=== PATIENT | male | born 1985 | race Caucasian/White ===

== ENCOUNTER 2025-06-01 14:27 | Inpatient (IN) ==
--- NOTE | 2025-06-01 14:53 | Emergency Department Note ---
Impression & Plan Pulmonary embolism, DVT (deep venous thrombosis) ED Provider Note NAME: PARRISH ARNOLD AGE: 39 SEX: F : 1985 ARRIVES VIA: Walk-In INFORMANT: Patient ED PROVIDER(S): Steve Villela DO CHIEF COMPLAINT: Left leg pain and swelling and chest pain HPI: Patient is a 39-year-old male who presents ER for left calf pain in combination with swelling which has been present over the past week. Patient was seen evaluated and referred in for the swelling. He also notes that he had some right sided chest pain which started 2 days ago. Pain has resolved and was only there for short period of time. Nonexertional. No shortness of breath. No dysuria, urgency or frequency. Denies any recent trips or travel, coughing up blood history of blood clots or clotting disorders. ADDITIONAL HISTORY OBTAINED: Per HPI Chronic Medical/Social Conditions Affecting Care: Per HPI PAST MEDICAL HISTORY:See Below PAST SURGICAL HISTORY:See Below FAMILY HISTORY:See Below SOCIAL HISTORY:See Below HOME MEDICATIONS:See Below ALLERGIES:See Below VITALS:See Below PHYSICAL EXAMINATION: GENERAL: Sitting up in bed, alert, well appearing, well nourished, no distress, non-toxic EYE EXAM: normal conjunctiva. PERRL and EOM's grossly intact. OROPHARYNX: no exudate, no erythema, lips, buccal mucosa, and tongue normal and mucous membranes are moist NECK: supple, no nuchal rigidity, no adenopathy, non-tender LUNGS: Clear to auscultation. Normal chest wall mechanics HEART: no murmurs, S1 normal and S2 normal ABDOMEN: abdomen soft, non-tender, normo-active bowel sounds, no masses, no rebound or guarding. UPPER EXTREMITIES: upper extremities are grossly normal. LOWER EXTREMITIES: No pitting edema. Left calf larger than right. NEURO EXAM: Normal sensorium, cranial nerves II-XII grossly intact, normal speech, no gross weakness of arms, no gross weakness of legs. MEDICAL DECISION MAKING: Patient is a 39-year-old male who presents ER for the above-stated complaint. IV was established and blood work was obtained. Labs show no significant leukocytosis or anemia. INR unremarkable. D-dimer was elevated at 9000. BMP along with LFTs bilirubin lipase and troponin was negative. CT angio the chest shows PEs. Chest x-ray was unremarkable. Duplex confirms lower extremity DVTs. He denies any previous brain bleeds, coughing up blood, vomiting blood or urinating blood. Patient was placed on a heparin drip and bolus. Discussed case with the hospitalist for further evaluation management treatment. Consults/Care Managements Discussions: Per [facility] Triage Nursing notes reviewed. Limited review of prior medical records performed Vital Signs: reviewed and remarkable for HTN Differential diagnosis: DVT, musculoskeletal, infection, joint effusion, trauma, lymphedema, idiopathic, CHF, as well as other pathologies. ER treatment provided: See below Diagnostics interpreted by me include EKG and cardiac monitoring as listed below: -Cardiac Monitoring: An order was placed for continuous cardiac monitoring. The monitor shows a rate of 95 with sinus rhythm. -ECG: Sinus rhythm rate of 102 Normal axis No PVCs QTc 448 -Laboratory studies:Interpreted by me as stated above in MDM and shown below. Imaging studies: Xrays: As interpreted by me:none CTs show: CT angio the chest per my pleurae interpretation shows PEs CT angio the chest per radiology confirms PEs Duplex of the left lower extremity suggest DVTs Procedures:none Critical Care: I have personally spent 55 minutes of critical care time in the direct management of this patient. This includes bedside care, interpretation of diagnostic studies, and testing, discussion with consultants, patient, and family members, and other required patient management activities. This 55 minutes is in excess of all separately billable procedures. Past Med/Surg History Problem List (Updated 06/01/25 @ 17:34 by Steve Villela DO) DVT (deep venous thrombosis) (Acute) Pulmonary embolism (Acute) Social History Smoking Status: Never smoker Preferred Language: Azeri Feels Safe at Home: Yes Allergies Allergies Allergy/AdvReac Type Severity Reaction Status Date / Time No Known Allergies Allergy Unverified 06/01/25 17:29 Home Meds Home Medications Medication Instructions Recorded Confirmed aspirin 325 mg tablet 325 mg PO Q4H PRN Pain 06/01/25 06/01/25 ibuprofen 200 mg tablet 400 - 600 mg PO Q6H PRN Pain 06/01/25 06/01/25 Results & Data (ED) Vital Signs Vital Signs - 24 hr 06/01/25 14:30 06/01/25 15:05 06/01/25 15:08 Temperature 37.3 C Temperature Source Temporal Artery Scan Pulse Rate 111 H 102 H Respiratory Rate 20 21 Respiratory Effort / Characteristics Non-Labored Respiratory Depth Normal Blood Pressure 167/94 H 166/100 H Blood Pressure Mean 118 116 Pulse Oximetry 98 98 94 Oxygen Delivery Method Room Air Room Air Sepsis Recent Fever Within 48 Hours No Sepsis New/Unexplained Change in Mental Status No Sepsis Action Taken by Nursing No Action Required 06/01/25 15:17 06/01/25 15:30 06/01/25 15:51 Temperature Temperature Source Pulse Rate 102 H 98 H Respiratory Rate 19 Respiratory Effort / Characteristics Respiratory Depth Blood Pressure 162/111 H Blood Pressure Mean 146 Pulse Oximetry 95 95 Oxygen Delivery Method Sepsis Recent Fever Within 48 Hours Sepsis New/Unexplained Change in Mental Status Sepsis Action Taken by Nursing 06/01/25 16:04 Temperature Temperature Source Pulse Rate 97 H Respiratory Rate 12 Respiratory Effort / Characteristics Respiratory Depth Blood Pressure 151/86 H Blood Pressure Mean 100 Pulse Oximetry 92 Oxygen Delivery Method Sepsis Recent Fever Within 48 Hours Sepsis New/Unexplained Change in Mental Status Sepsis Action Taken by Nursing Laboratory Data 06/01/25 15:09 06/01/25 15:09 Lab Results 06/01/25 Range/Units 15:09 WBC 7.67 (4.8-10.8) K/ul RBC 5.05 (4.20-5.40) M/uL Hgb 15.0 (12.0-16.0) g/dL Hct 44.6 (37.0-47.0) % MCV 88.3 (80.0-100.0) fL MCH 29.7 (25.0-34.0) pg MCHC 33.6 (32.0-36.0) g/dL RDW Std Deviation 38.2 (36.4-46.3) fL RDW Coeff of Rocío 11.9 (11.5-14.5) % Plt Count 208 (130-400) K/uL MPV 9.9 (9.4-12.4) fL Immature Gran % (Auto) 0.5 % Neut % (Auto) 73.3 % Lymph % (Auto) 14.1 % [place] % (Auto) 9.6 % Eos % (Auto) 1.7 % Baso % (Auto) 0.8 % Neut # (Auto) 5.62 (1.40-6.50) K/uL Lymph # (Auto) 1.08 L (1.20-3.40) K/uL [place] # (Auto) 0.74 H (0.11-0.59) K/uL Eos # (Auto) 0.13 (0.00-0.50) K/uL Baso # (Auto) 0.06 (0.00-0.20) K/uL Immature Gran # (Auto) 0.04 (0.01-0.20) K/uL PT 10.4 (9.0-12.0) Seconds INR 1.0 (0.9-1.1) APTT 24 (21-31) Seconds PTT Ratio 0.9 D-Dimer 9500 H* (0-500) ug/L FEU Sodium 142 (136-145) mmol/L Potassium 4.0 (3.5-5.1) mmol/L Chloride 107 (98-107) mmol/L Carbon Dioxide 28 (21-32) mmol/L Anion Gap 7 (3-11) BUN 13 (6-23) mg/dl Creatinine 1.01 (0.6-1.2) mg/dl Est Cr Clr Drug Dosing 102.2 ml/min eGFR 73.07 BUN/Creatinine Ratio 12.9 (10-20) Glucose 111 H (70-99(Fasting)) mg/dl Calcium 9.2 (8.6-10.3) mg/dl Total Bilirubin 0.7 (0.2-1.0) mg/dl AST 28 (13-39) U/L ALT 42 (7-52) U/L Alkaline Phosphatase 79 (34-104) U/L Troponin I High Sens < 2.3 (0-14) pg/ml Total Protein 7.1 (6.0-8.3) gm/dl Albumin 4.1 (3.4-5.0) gm/dl Globulin 3.0 (2.5-4.0) gm/dl Albumin/Globulin Ratio 1.4 (0.9-2) Lipase 22 (11-82) U/L Administered Medications Heparin Sodium/Dextrose (Heparin 98195 Unit/500 Ml D5w) 25,000 units in 500 mls @ 32 mls/hr IV .[id number] [facility]; Protocol Stop: 07/01/25 17:14 Last Admin: 06/01/25 17:18 Dose: 1,600 units/hr, 32 mls/hr Documented By: earl Co-signed By: MINERVA Discontinued Medications Heparin Sodium (Porcine) (Heparin Sod (Porcine) 1000 Unit/Ml) 1 units IV NOW ONE Stop: 06/01/25 17:08 Last Admin: 06/01/25 17:17 Dose: 7,000 units Documented By: earl Co-signed By: MINERVA Sodium Chloride (Nss) 1,000 mls @ 999 mls/hr IV .Q1H1M ONE Stop: 06/01/25 15:48 Last Infusion: 06/01/25 16:11 Dose: Infused Documented By: earl Admin: 06/01/25 15:10 Dose: 999 mls/hr Documented By: earl Ioversol (Optiray 320 125ml) 119 ml IV ONCE ONE Stop: 06/01/25 16:51 Last Admin: 06/01/25 16:51 Dose: 119 ml Documented By: EDK Imaging Data Radiologist's Impression: Chest X-Ray 06/01/25 14:48 Exam: AP Portable Chest Exam reason: Nonspecific chest pain Comparison: No prior examinations available for comparison Technique: A single AP portable view of the chest was obtained Findings: The lungs are well-expanded. No focal areas of consolidation are identified. The cardiac and mediastinal silhouettes are within normal limits. There is no pneumothorax and no acute bony abnormalities are seen. Impression: No acute cardiopulmonary abnormalities Electronically signed by Nitin Viveros 06-01-2025 3:33 PM Chest CTA 06/01/25 16:23 EXAMINATION: CT angio chest PE protocol CLINICAL HISTORY: Patient concern for PE, left calf pain not improving, chest pain 3 days PRIORS: Chest radiograph today TECHNIQUE: Contiguous axial images were obtained through the chest with the use of intravenous contrast. Sagittal and coronal reformations are supplied. FINDINGS: The pulmonary arteries are well opacified. Right central, segmental and subsegmental pulmonary embolism present in the right lower lobe. Pulmonary embolism also present in the central segmental and subsegmental right upper lobe branches. No left pulmonary embolism is identified. No flattening of the interventricular septum at this time. Heart size within normal limits. No pleural or pericardial effusion. Trachea and mainstem bronchi are patent. No adenopathy in the chest. Thyroid is normal in size. No pneumonia, airspace consolidation, pulmonary infarction or pleural effusion. Limited visualization of the upper abdomen is unremarkable. No acute osseous abnormality. IMPRESSION: Right upper and lower lobe central, segmental and subsegmental pulmonary embolism with moderate thrombus burden and no CT features of heart strain at this time. The critical result protocol was activated at 5:23 PM EST on 06/01/2025 ACT 112: Positive. There are findings on this examination that require communication between the performing entity and the patient following Patient Test Result Information Act ([place] ACT 112) guidelines. Electronically signed by Sofie Kelley 06-01-2025 5:23 PM Discharge Plan Visit Data Chief Complaint: Leg Injury/Pain Stated Complaint: POSSIBLE DVT W/ PUMOMANARY EMUBLISM IN LEG ED Provider: Steve Villela Discharge Problem: Pulmonary embolism, DVT (deep venous thrombosis) Condition: Serious Forms Stand Alone Forms: B[employer] Prescriptions Prescriptions: No Action aspirin 325 mg Tablet 325 mg PO Q4H PRN (Reason: Pain) ibuprofen 200 mg Tablet 400 - 600 mg PO Q6H PRN (Reason: Pain) Referrals Referrals: PCP,NO [Physician] - Discharge Problem: Pulmonary embolism Qualifiers: Pulmonary embolism type: unspecified Chronicity: acute Acute cor pulmonale presence: unspecified Qualified Code(s): I26.99 - Other pulmonary embolism without acute cor pulmonale DVT (deep venous thrombosis) Qualifiers: DVT location: lower extremity Chronicity: acute Laterality: left
[2025-06-01] MEDS: SODIUM CHLORIDE 0.9% 1,000 ML IV ONE ×2 (15:10→18:03)
--- NOTE | 2025-06-01 15:34 | XRay Report ---
Exam: AP Portable Chest Exam reason: Nonspecific chest pain Comparison: No prior examinations available for comparison Technique: A single AP portable view of the chest was obtained Findings: The lungs are well-expanded. No focal areas of consolidation are identified. The cardiac and mediastinal silhouettes are within normal limits. There is no pneumothorax and no acute bony abnormalities are seen. Impression: No acute cardiopulmonary abnormalities Electronically signed by Nitin Viveros 06-01-2025 3:33 PM
[2025-06-01 15:44] LABS: Immature Granulocytes # (auto) 0.04 K/uL (0.01-0.20); Immature Granulocytes % (auto) 0.5 %; Mean Corpuscular Hemoglobin 29.7 pg (25.0-34.0); Mean Corpuscular Volume 88.3 fL (80.0-100.0); Platelet Count 208 K/uL (130-400); RDW Standard Deviation 38.2 fL (36.4-46.3); White Blood Count 7.67 K/ul (4.8-10.8)
[2025-06-01 16:01] LABS: Alanine Aminotransferase 42 U/L (7-52); Albumin Globulin Ratio 1.4 (0.9-2); Albumin Level 4.1 gm/dl (3.4-5.0); Alkaline Phosphatase 79 U/L (34-104); Anion Gap 7 (3-11); Bilirubin,Total 0.7 mg/dl (0.2-1.0); Blood Urea Nitrogen 13 mg/dl (6-23); Calcium 9.2 mg/dl (8.6-10.3); Carbon Dioxide 28 mmol/L (21-32); Chloride 107 mmol/L (98-107); Globulin 3.0 gm/dl (2.5-4.0); Glucose 111 mg/dl (70-99(Fasting)); Lipase 22 U/L (11-82); Potassium 4.0 mmol/L (3.5-5.1); Sodium 142 mmol/L (136-145); Total Protein 7.1 gm/dl (6.0-8.3)
[2025-06-01] MEDS: OPTIRAY 320 125ml IV ONE (16:51)
[2025-06-01 17:12] LABS: INR 1.0 (0.9-1.1); Partial Thromboplastin Time 24 Seconds (21-31); Prothrombin Time 10.4 Seconds (9.0-12.0)
[2025-06-01] MEDS: HEPARIN SOD (PORCINE) 1000 UNIT/ML IV ONE (17:17)
[2025-06-01] MEDS: HEPARIN 25000 UNIT/500 ML D5W 25,000 UNITS/500 ML BAG IV SCH (17:18)
--- NOTE | 2025-06-01 17:24 | CT Scan Report ---
EXAMINATION: CT angio chest PE protocol CLINICAL HISTORY: Patient concern for PE, left calf pain not improving, chest pain 3 days PRIORS: Chest radiograph today TECHNIQUE: Contiguous axial images were obtained through the chest with the use of intravenous contrast. Sagittal and coronal reformations are supplied. FINDINGS: The pulmonary arteries are well opacified. Right central, segmental and subsegmental pulmonary embolism present in the right lower lobe. Pulmonary embolism also present in the central segmental and subsegmental right upper lobe branches. No left pulmonary embolism is identified. No flattening of the interventricular septum at this time. Heart size within normal limits. No pleural or pericardial effusion. Trachea and mainstem bronchi are patent. No adenopathy in the chest. Thyroid is normal in size. No pneumonia, airspace consolidation, pulmonary infarction or pleural effusion. Limited visualization of the upper abdomen is unremarkable. No acute osseous abnormality. IMPRESSION: Right upper and lower lobe central, segmental and subsegmental pulmonary embolism with moderate thrombus burden and no CT features of heart strain at this time. The critical result protocol was activated at 5:23 PM EST on 06/01/2025 ACT 112: Positive. There are findings on this examination that require communication between the performing entity and the patient following Patient Test Result Information Act ([place] ACT 112) guidelines. Electronically signed by Sofie Kelley 06-01-2025 5:23 PM
--- NOTE | 2025-06-01 19:04 | History & Physical Report ---
Date of Service June 01, 2025 Assessment & Plan (1) Pulmonary embolism: Plan: 39-year-old male with past med history significant for anxiety comes because of left lower extremity swelling and pain and found to have acute DVT and PE. Patient states since about a week he is having swelling and pain in the left lower extremity. Has been not getting better and came to the ER today. Few days back had an episode of right-sided chest pain but that got resolved. He had fever for couple of days few days ago but that got resolved. Currently no chest pain or shortness of breath. No headache. No dizziness. Vision is okay. No runny nose or sore throat. No cough. Appetite is okay. No recent weight loss. No nausea. No abdominal pain. Normal bowel and bladder movements. Denies any blood in the stools. Currently resting comfortably and hemodynami blue stable. No recent long distance travel. No recent surgeries. Says father has a history of blood clot. Acute pulmonary embolism Acute DVT left lower extremity Started on IV heparin Troponin negative CTA chest shows right upper and lower lobe segmental and subsegmental PE with moderate thrombus burden and no CT features of heart strain Will follow echo Follow-up with PCP for hypercoagulable Workup Close monitoring med/telemetry DVT prophylaxis IV heparin Disposition Med/telemetry Full code. History of Present Illness Chief Complaint: Acute PE and DVT Primary Care Provider: Cresencio Espinosa MD 39-year-old male with past med history significant for anxiety comes because of left lower extremity swelling and pain and found to have acute DVT and PE. Patient states since about a week he is having swelling and pain in the left lower extremity. Has been not getting better and came to the ER today. Few days back had an episode of right-sided chest pain but that got resolved. He had fever for couple of days few days ago but that got resolved. Currently no chest pain or shortness of breath. No headache. No dizziness. Vision is okay. No runny nose or sore throat. No cough. Appetite is okay. No recent weight loss. No nausea. No abdominal pain. Normal bowel and bladder movements. Denies any blood in the stools. Currently resting comfortably and hemodynamically stable. No recent long distance travel. No recent surgeries. Says father has a history of blood clot. Past medical history. As mentioned above. Past surgical history. No surgical history on file. Social history. No smoking. No alcohol use. No drug use. Family history. Maternal grandmother has diabetes. Paternal grandmother has diabetes. Uncle has diabetes. Allergies Allergy/AdvReac Type Severity Reaction Status Date / Time No Known Allergies Allergy Unverified 06/01/25 17:29 Home Medications Medication Instructions Recorded Confirmed Type aspirin 325 mg tablet 325 mg PO Q4H PRN Pain 06/01/25 06/01/25 History ibuprofen 200 mg tablet 400 - 600 mg PO Q6H PRN Pain 06/01/25 06/01/25 History Past Med/Surg History Problem List (Updated 06/01/25 @ 17:34 by Steve Villela DO) DVT (deep venous thrombosis) (Acute) Pulmonary embolism (Acute) Social History Smoking Status: Never smoker Preferred Language: German Feels Safe at Home: Yes Review of Systems Review of Systems: All systems reviewed & are unremarkable except as noted in HPI & below Physical Exam Physical Exam: General- Not in distress Head- atraumatic Eyes- PERRL. ENT- oropharynx clear Neck- supple, no JVD. Lungs- clear to auscultation no wheezing or crackles Heart- regular rhythm; no murmur, no gallop. Abdomen- normal bowel sounds, soft, nontender, no distension. Extremities- Left lower extremity swollen and warm to palpation Neuro- alert, oriented PERRL, no facial palsy; no dysarthria; moves extremities Results & Data Results & Data Vital Signs (Past 12 Hours) Vital Signs Temp Pulse Resp BP Pulse Ox O2 Del Method 06/01/25 16:04 97 H 12 151/86 H 92 06/01/25 15:51 95 06/01/25 15:30 98 H 19 162/111 H 95 06/01/25 15:17 102 H 06/01/25 15:08 102 H 21 166/100 H 94 06/01/25 15:05 98 Room Air 06/01/25 14:30 37.3 C 111 H 20 167/94 H 98 Room Air Diagnostic Findings Laboratory Results WBC 7.67 K/ul (4.8-10.8) 06/01/25 15:09 RBC 5.05 M/uL (4.20-5.40) 06/01/25 15:09 Hgb 15.0 g/dL (12.0-16.0) 06/01/25 15:09 Hct 44.6 % (37.0-47.0) 06/01/25 15:09 MCV 88.3 fL (80.0-100.0) 06/01/25 15:09 MCH 29.7 pg (25.0-34.0) 06/01/25 15:09 MCHC 33.6 g/dL (32.0-36.0) 06/01/25 15:09 RDW Std Deviation 38.2 fL (36.4-46.3) 06/01/25 15:09 RDW Coeff of [place]ío 11.9 % (11.5-14.5) 06/01/25 15:09 Plt Count 208 K/uL (130-400) 06/01/25 15:09 MPV 9.9 fL (9.4-12.4) 06/01/25 15:09 Immature Gran % (Auto) 0.5 % 06/01/25 15:09 Neut % (Auto) 73.3 % 06/01/25 15:09 Lymph % (Auto) 14.1 % 06/01/25 15:09 [place] % (Auto) 9.6 % 06/01/25 15:09 Eos % (Auto) 1.7 % 06/01/25 15:09 Baso % (Auto) 0.8 % 06/01/25 15:09 Neut # (Auto) 5.62 K/uL (1.40-6.50) 06/01/25 15:09 Lymph # (Auto) 1.08 K/uL (1.20-3.40) L 06/01/25 15:09 [place] # (Auto) 0.74 K/uL (0.11-0.59) H 06/01/25 15:09 Eos # (Auto) 0.13 K/uL (0.00-0.50) 06/01/25 15:09 Baso # (Auto) 0.06 K/uL (0.00-0.20) 06/01/25 15:09 Immature Gran # (Auto) 0.04 K/uL (0.01-0.20) 06/01/25 15:09 PT 10.4 Seconds (9.0-12.0) 06/01/25 15:09 INR 1.0 (0.9-1.1) 06/01/25 15:09 APTT 24 Seconds (21-31) 06/01/25 15:09 PTT Ratio 0.9 06/01/25 15:09 D-Dimer 9500 ug/L FEU (0-500) H* 06/01/25 15:09 Sodium 142 mmol/L (136-145) 06/01/25 15:09 Potassium 4.0 mmol/L (3.5-5.1) 06/01/25 15:09 Chloride 107 mmol/L (98-107) 06/01/25 15:09 Carbon Dioxide 28 mmol/L (21-32) 06/01/25 15:09 Anion Gap 7 (3-11) 06/01/25 15:09 BUN 13 mg/dl (6-23) 06/01/25 15:09 Creatinine 1.01 mg/dl (0.6-1.2) 06/01/25 15:09 Est Cr Clr Drug Dosing 102.2 ml/min 06/01/25 15:09 eGFR 73.07 06/01/25 15:09 BUN/Creatinine Ratio 12.9 (10-20) 06/01/25 15:09 Glucose 111 mg/dl (70-99(Fasting)) H 06/01/25 15:09 Calcium 9.2 mg/dl (8.6-10.3) 06/01/25 15:09 Total Bilirubin 0.7 mg/dl (0.2-1.0) 06/01/25 15:09 AST 28 U/L (13-39) 06/01/25 15:09 ALT 42 U/L (7-52) 06/01/25 15:09 Alkaline Phosphatase 79 U/L (34-104) 06/01/25 15:09 Troponin I High Sens < 2.3 pg/ml (0-14) 06/01/25 15:09 Total Protein 7.1 gm/dl (6.0-8.3) 06/01/25 15:09 Albumin 4.1 gm/dl (3.4-5.0) 06/01/25 15:09 Globulin 3.0 gm/dl (2.5-4.0) 06/01/25 15:09 Albumin/Globulin Ratio 1.4 (0.9-2) 06/01/25 15:09 Lipase 22 U/L (11-82) 06/01/25 15:09 Impressions Chest X-Ray 06/01/25 14:48 Exam: AP Portable Chest Exam reason: Nonspecific chest pain Comparison: No prior examinations available for comparison Technique: A single AP portable view of the chest was obtained Findings: The lungs are well-expanded. No focal areas of consolidation are identified. The cardiac and mediastinal silhouettes are within normal limits. There is no pneumothorax and no acute bony abnormalities are seen. Impression: No acute cardiopulmonary abnormalities Electronically signed by Nitin Viveros 06-01-2025 3:33 PM Chest CTA 06/01/25 16:23 EXAMINATION: CT angio chest PE protocol CLINICAL HISTORY: Patient concern for PE, left calf pain not improving, chest pain 3 days PRIORS: Chest radiograph today TECHNIQUE: Contiguous axial images were obtained through the chest with the use of intravenous contrast. Sagittal and coronal reformations are supplied. FINDINGS: The pulmonary arteries are well opacified. Right central, segmental and subsegmental pulmonary embolism present in the right lower lobe. Pulmonary embolism also present in the central segmental and subsegmental right upper lobe branches. No left pulmonary embolism is identified. No flattening of the interventricular septum at this time. Heart size within normal limits. No pleural or pericardial effusion. Trachea and mainstem bronchi are patent. No adenopathy in the chest. Thyroid is normal in size. No pneumonia, airspace consolidation, pulmonary infarction or pleural effusion. Limited visualization of the upper abdomen is unremarkable. No acute osseous abnormality. IMPRESSION: Right upper and lower lobe central, segmental and subsegmental pulmonary embolism with moderate thrombus burden and no CT features of heart strain at this time. The critical result protocol was activated at 5:23 PM EST on 06/01/2025 ACT 112: Positive. There are findings on this examination that require communication between the performing entity and the patient following Patient Test Result Information Act ([place] ACT 112) guidelines. Electronically signed by Sofie Kelley 06-01-2025 5:23 PM ECG Additional Comments: ECG. Sinus tachycardia rate of 102. No acute ST changes seen. Code Status & VTE Plan VTE Prophylaxis Plan VTE Prophylaxis will be ordered: Yes (1) Pulmonary embolism Acute cor pulmonale presence: unspecified Chronicity: acute Pulmonary embolism type: unspecified Qualified Code(s): I26.99 - Other pulmonary embolism without acute cor pulmonale
[2025-06-01] MEDS ORDERED: POLYETHYLENE (MIRALAX) 17 GM PACK PO PRN (22:47)
[2025-06-01] MEDS ORDERED: ACETAMINOPHEN 325 MG TAB PO PRN (22:47)
[2025-06-01] MEDS ORDERED: NITROGLYCERIN SL 0.4 MG/TAB TAB SL PRN (22:47)
[2025-06-01] MEDS: Heparin IV Adult Wt-Based Standard w/ INITIAL Bolus Protocol IV STA (23:00)
[2025-06-01] MEDS: SODIUM CHLORIDE 0.9% 1,000 ML IV SCH (23:10)
[2025-06-02 00:05] LABS: ANTI-Xa, UFH(UnfractionatedHep 0.52 IU/ml (0.3-0.7)
--- NOTE | 2025-06-02 00:47 | Ultrasound Report ---
Exam(s): US VENOUS LEFT LOWER EXTREMITY EXAM: US Duplex Left Lower Extremity Veins CLINICAL HISTORY: Reason for exam: swelling. OTHER: Other Notes: LLE pain in calf for about a week per pt LLE- occlusive thrombus seen left sfv distal to distal calf. (Left ptv, pierre, and atv). Pt has a duplicated system, one of two sfv appears patent and compressible. TECHNIQUE: Real-time duplex ultrasound scan of the left lower extremity veins integrating B-mode two-dimensional vascular structure, Doppler spectral analysis, color flow Doppler imaging and compression. COMPARISON: No relevant prior studies available. FINDINGS: Deep veins: Occlusive thrombus extending from the distal left posterior tibial peroneal and anterior tibial veins to one of the paired distal left femoral veins. The other. Femoral vein is fully compressible normal color flow and augmentation. Superficial veins: Unremarkable. No thrombus in the visualized great saphenous vein. Soft tissues: No acute findings. No popliteal cyst. IMPRESSION: Left lower extremity DVT extending from the tibial veins in the calf to one of the paired distal left femoral veins. Electronically signed by: Steve Coelho MD 06/02/25 00:46 AM
--- NOTE | 2025-06-02 05:58 | Electrocardiogram Report ---
Test Reason : Blood Pressure : */* mmHG Vent. Rate : 102 BPM Atrial Rate : 102 BPM P-R Int : 182 ms QRS Dur : 86 ms QT Int : 344 ms P-R-T Axes : 46 69 65 degrees QTcB Int : 448 ms Sinus tachycardia Otherwise normal ECG No previous ECGs available Confirmed by Dino Bowie ([id number]) on 06/02/2025 5:57:59 AM Referred By: REFERRED SELF Confirmed By: Dino Bowie
[2025-06-02 06:35] LABS: Hematocrit (blood only) 40.1 % (42.0-52.0); Hemoglobin 13.3 g/dL (14.0-18.0); Immature Granulocytes # (auto) 0.03 K/uL (0.01-0.20); Immature Granulocytes % (auto) 0.5 %; Mean Corpuscular Hemoglobin 29.2 pg (25.0-34.0); Mean Corpuscular Volume 88.1 fL (80.0-100.0); Platelet Count 173 K/uL (130-400); RDW Standard Deviation 38.5 fL (36.4-46.3); Red Blood Count 4.55 M/uL (4.70-6.10); White Blood Count 6.10 K/ul (4.8-10.8)
[2025-06-02 07:06] LABS: Anion Gap 6 (3-11); Blood Urea Nitrogen 8 mg/dl (6-23); Calcium 8.2 mg/dl (8.6-10.3); Carbon Dioxide 27 mmol/L (21-32); Chloride 108 mmol/L (98-107); Creatinine Clr Calc Pharmacy 144.0 ml/min; Glucose 108 mg/dl (70-99(Fasting)); Magnesium 2.0 mg/dl (1.7-2.4); Potassium 4.1 mmol/L (3.5-5.1); Sodium 141 mmol/L (136-145)
[2025-06-02] MEDS: APIXABAN 5 MG TABLET PO SCH (08:40)
--- NOTE | 2025-06-02 08:51 | XCELERA ---
[id number]
--- NOTE | 2025-06-02 11:17 | Discharge Summary ---
Discharge Summary Date of Service June 02, 2025 Principal Dx & Hospital Course #1 = Principal Diagnosis (1) DVT (deep venous thrombosis): (2) Pulmonary embolism: Patient is a 39-year-old male with PMHx significant for anxiety who presented to the ED on 06/01/25 with c/o LLE swelling, R-sided chest achiness and some intermittent SOB with exertion. Was found to have a left lower extremity DVT extending from the tibial veins in the calf to one of the paired distal left femoral veins on US doppler imaging. Was also found to have right upper and lower lobe central, segmental and subsegmental pulmonary emboli with moderate thrombus burden on chest CTA, no CT features of heart strain. Was started on IV heparin in ED and then transitioned to Eliquis today. Had TTE completed this morning which was grossly unremarkable; EF 60 to 65%, normal LV wall motion, normal LV wall thickness, normal RV size and function and no valvular disease. Tolerating anticoagulation therapy without issue, no signs or symptoms of bleeding. Remains hemodynamically stable for DC, did not require any supplemental O2 therapy. Outpatient hematology referral to be placed for hypercoagulable workup, discussed with our nurse navigator. Patient did admit to significant amount of physical inactivity in his line of work. 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 Sedentary behavior certainly could be a provoking factor. However, determination of duration of anticoagulation therapy will be pending his hypercoagulable workup. His father does have a history of blood clots however this was after surgical event. No other known family or personal history of blood clots. Patient provided with Eliquis coupon prior to DC. PCP: Cresencio Espinosa MD Disposition: DC home in stable condition with PCP, hematology follow-up. Patient seen in collaboration with Dr. Kirk. Please see addendum. I spent a total of 54 minutes coordinating, documenting, and providing care for this patient excluding time spent in the performance of separately billed services or time spent by another provider/QHP. This included personally reviewing all current laboratories and imaging studies, medical reconciliation, outpatient chart review and discussion with specialists. This chart was completed in part utilizing Speech Voice Recognition Software. Grammatical errors, random word insertions, pronoun errors, and incomplete sentences are an occasional consequence of this system due to software limitations, ambient noise, and hardware issues. Any formal questions or concerns about the content, text, or information contained within the body of this dictation should be directly addressed to the provider for clarification. Notes For Next Care Provider Will need hematology referral for hypercoagulable workup. Duration of anticoagulation therapy to be determined pending hypercoagulable workup. Patient provided with Eliheavenmonica coupon prior to discharge for free first month supply. Medication Changes From Visit Jessica for DVT/PE Admission HPI Per Admitting Provider 39-year-old male with past med history significant for anxiety comes because of left lower extremity swelling and pain and found to have acute DVT and PE. Patient states since about a week he is having swelling and pain in the left lower extremity. Has been not getting better and came to the ER today. Few days back had an episode of right-sided chest pain but that got resolved. He had fever for couple of days few days ago but that got resolved. Currently no chest pain or shortness of breath. No headache. No dizziness. Vision is okay. No runny nose or sore throat. No cough. Appetite is okay. No recent weight loss. No nausea. No abdominal pain. Normal bowel and bladder movements. Denies any blood in the stools. Currently resting comfortably and hemodynamically stable. No recent long distance travel. No recent surgeries. Says father has a history of blood clot. Past medical history. As mentioned above. Past surgical history. No surgical history on file. Social history. No smoking. No alcohol use. No drug use. Family history. Maternal grandmother has diabetes. Paternal grandmother has diabetes. Uncle has diabetes. Admission Exam Per Admitting Provider General- Not in distress Head- atraumatic Eyes- PERRL. ENT- oropharynx clear Neck- supple, no JVD. Lungs- clear to auscultation no wheezing or crackles Heart- regular rhythm; no murmur, no gallop. Abdomen- normal bowel sounds, soft, nontender, no distension. Extremities- Left lower extremity swollen and warm to palpation Neuro- alert, oriented PERRL, no facial palsy; no dysarthria; moves extremities Discharge Exam General: WD/WN, NAD, lying down in bed, A&Ox3 HEENT: Normocephalic, atraumatic, moist mucous membranes Respiratory: Normal respiratory effort, on RA, CTAB, no accessory muscle use Cardiovascular: RRR, normal peripheral pulses, mild LLE swelling but no overlying erythema (warm but nontender to palpation) Abdomen/GI: Normal bowel sounds, soft, nontender to palpation in all quadrants Extremities/Musculoskeletal: No cyanosis or clubbing, extremities motor strength intact, moves all extremities Neurologic: No overt focal deficits, CN's II-XI not formally tested but appear grossly intact bilaterally Updated Medication List Medication Instructions Recorded Confirmed Type ibuprofen 200 mg tablet 400 - 600 mg PO Q6H PRN Pain 06/01/25 06/01/25 History apixaban 5 mg tablet (Eliquis) 5 mg PO BID #42 tabs 06/02/25 Rx apixaban 5 mg tablet (Eliquis) 10 mg (2 x 5 mg) PO BID #26 tabs 06/02/25 Rx Hospital Stay Data Consultations 06/01/25 17:09 ED Decision to Admit Stat Diagnostic Imagining Performed 06/01/25 14:48 US venous doppler LE LT Stat Exam(s): US VENOUS LEFT LOWER EXTREMITY EXAM: US Duplex Left Lower Extremity Veins CLINICAL HISTORY: Reason for exam: swelling. OTHER: Other Notes: LLE pain in calf for about a week per pt LLE- occlusive thrombus seen left sfv distal to distal calf. (Left ptv, pierre, and atv). Pt has a duplicated system, one of two sfv appears patent and compressible. TECHNIQUE: Real-time duplex ultrasound scan of the left lower extremity veins integrating B-mode two-dimensional vascular structure, Doppler spectral analysis, color flow Doppler imaging and compression. COMPARISON: No relevant prior studies available. FINDINGS: Deep veins: Occlusive thrombus extending from the distal left posterior tibial peroneal and anterior tibial veins to one of the paired distal left femoral veins. The other. Femoral vein is fully compressible normal color flow and augmentation. Superficial veins: Unremarkable. No thrombus in the visualized great saphenous vein. Soft tissues: No acute findings. No popliteal cyst. IMPRESSION: Left lower extremity DVT extending from the tibial veins in the calf to one of the paired distal left femoral veins. Electronically signed by: Steve Coelho MD 06/02/25 00:46 AM 06/01/25 16:23 CT angio chest PE protocol Stat EXAMINATION: CT angio chest PE protocol CLINICAL HISTORY: Patient concern for PE, left calf pain not improving, chest pain 3 days PRIORS: Chest radiograph today TECHNIQUE: Contiguous axial images were obtained through the chest with the use of intravenous contrast. Sagittal and coronal reformations are supplied. FINDINGS: The pulmonary arteries are well opacified. Right central, segmental and subsegmental pulmonary embolism present in the right lower lobe. Pulmonary embolism also present in the central segmental and subsegmental right upper lobe branches. No left pulmonary embolism is identified. No flattening of the interventricular septum at this time. Heart size within normal limits. No pleural or pericardial effusion. Trachea and mainstem bronchi are patent. No adenopathy in the chest. Thyroid is normal in size. No pneumonia, airspace consolidation, pulmonary infarction or pleural effusion. Limited visualization of the upper abdomen is unremarkable. No acute osseous abnormality. IMPRESSION: Right upper and lower lobe central, segmental and subsegmental pulmonary embolism with moderate thrombus burden and no CT features of heart strain at this time. The critical result protocol was activated at 5:23 PM EST on 06/01/2025 ACT 112: Positive. There are findings on this examination that require communication between the performing entity and the patient following Patient Test Result Information Act ([place] ACT 112) guidelines. Electronically signed by Sofie Kelley 06-01-2025 5:23 PM TTE, 06/02/2025: Left ventricle is normal in size. There is normal left ventricular wall thickness. The left ventricular wall motion is normal. Left ventricular ejection fraction of 60 to 65%. The right ventricle is normal in size and function. No valvular disease. Doppler findings do not suggest pulmonary HTN. Pending Results Patient Have Any Pending Studies at Discharge: No Discharge Instructions Given to Patient (Per Discharging Provider) josefina England were admitted to [facility] after you were found to have a DVT (deep vein thrombosis/blood clot) in your left leg and a PE (pulmonary embolism/blood clot) in your right lung. A PE occurs when a blood clot gets stuck in an artery in the lung, blocking blood flow to part of the lung. It is possible that these blood clots were caused by physical inactivity. Inactivity significantly raises the risk of developing DVT and PE because prolonged sitting slows blood flow, especially in the legs, allowing clots to form. When leg muscles aren't richard, blood isn't squeezed upward toward the heart, creating stagnant areas where clots can develop, often in the deep veins of the legs. Being sedentary for long periods, like during travel or desk work, increases this risk, and if a clot breaks off and travels to the lungs, it becomes a PE. You will, however, need to follow-up with a content designer (blood doctor) to undergo a hypercoagulable workup. A hypercoagulable workup is a set of blood tests checking your blood's clotting ability, looking for inherited or acquired issues making you prone to clots (like Factor V Leiden, Protein C/S problems, Lupus Anticoagulant). It helps doctors understand why you had a clot (especially early or unexplained ones) to guide future clot prevention, treatment duration, and inform family members. You have been started on Eliquis, a blood thinning medication. This medication is used to treat a DVT/PE by stopping the clot from growing and preventing new ones from forming, allowing your body to naturally clear the existing one. You were provided with an Eliquis coupon. 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 In terms of duration of treatment, this will be determined pending the results of your hypercoagulable workup. MEDICATION CHANGES: Eliquis - Take this medication as prescribed. Your next dose will be THIS EVENING. RECOMMENDATIONS FOR FOLLOW-UP: Please attend your PCP follow-up appointment as scheduled. You will be contacted soon to schedule a hematology follow-up appointment with Jose. Seek medical attention if you have: * temperature above 101F * chest pain or trouble breathing * abdominal pain, nausea, vomiting * diarrhea, dark stools or bloody stools * any unanswered questions or concerns Call 911 if symptoms are severe. Please take good care of yourself. It has been a pleasure taking care of you. If you have any questions regarding your recent hospitalization, please contact [facility] and request a Jose Hospitalist @ [phone]. Total Time Total Time Spent Total Time Spent (In Minutes): 54 Supervising Physician Co-Signing Physician Notes Pt was seen and examined at bedside as f/u of PE and DVT. Pt fairly has sedentary lifestyle. Pt updated on his lab and imaging findings including echo findings. Pt denies sob, chest pain, palpitation. Denies any open wound. Pt advised to maintain activity in between work to avoid prolonged inactivity. Pt would like to go home. Pt advised to f/u w/ hematology as OP. Pt advised to maintain compliance with eliquis and if any bleeding or sob or chest pain or palpitations, advised to reach to emergency department. Pt advised to avoid NSAIDs while on blood thinner. On exam, pt on RA, HLA exam wnl. rest of the exam as above. Total time spent independently: 23 min. I have seen and examined the patient and have discussed the case with the provider above. I agree with the assessment and plan as stated.
[2025-06-04 15:18] LABS: Red Blood Count 5.05 M/uL (4.70-6.10)
[2025-06-04 15:19] LABS: Hematocrit (blood only) 44.6 % (42.0-52.0); Hemoglobin 15.0 g/dL (14.0-18.0)
[2025-06-04 15:20] LABS: Creatinine Clr Calc Pharmacy 124.0 ml/min
== END 2025-06-02 12:03 | disposition home or self-care (01) | DRG 299 ==
LOC: ED 14:27 → EDSEX 14:27 → 2N 18:51 → SUATTDRO 18:51 → 2N 22:09